=== PATIENT | female | born 1980 | race Caucasian/White ===

== ENCOUNTER 2016-10-19 12:40 | Emergency (ER) | payer BC, OTHER ==
[~2016-10-19] VITALS: Ht 162.6 cm; Wt 64.0 kg
[2016-10-19 12:42] VITALS: TEMP 36.5; Ht 162.6 cm; Wt 64.0 kg
[2016-10-19] MEDS ORDERED: SODIUM CHLORIDE 0.9% 1000ML 1,000 ML IV STA (12:59)
[2016-10-19] MEDS ORDERED: SODIUM CHLORIDE 0.9% 1000ML 1,000 ML IV ONE (12:59)
[2016-10-19] MEDS ORDERED: ONDANSETRON INJ 2 MG/ML 2 ML VIAL IV STA (12:59)
[2016-10-19] MEDS ORDERED: KETOROLAC TROMETHAMINE 30 MG/ML VIAL IV STA (12:59)
--- NOTE | 2016-10-19 13:00 | EMERGENCY ROOM VISIT NOTE ---
History Report prepared by Joyce: Philippe Salas Under the Supervision of: Dr. Philippe Morris M.D. First contact with patient: 12:45 Chief Complaint: ABDOMINAL PAIN Stated Complaint: ABD AND LOWER BACK PAIN History of Present Illness The patient is a 36 year old female who presents to the Emergency Room with complaints of worsening lower central abdominal pain beginning about 2 days ago. She notes she came from [facility] today, and the provider there did not hear anything in the lower bowels. The patient also complains of left lower back pain. She notes her abdominal pain has been worsening and has taken Ibuprofen for her symptoms. The patient notes her pain worsens with movement and lying down. She denies having any chest pain, shortness of breath, nausea, vomiting, urinary symptoms, vaginal bleeding or discharge, or trauma. She admits to having chills, but notes this is normal for her. The patient adds that she has had abnormal bowel movements for the past 3 days, and describes her stool as smaller with distinct sharp edges. Her last period was 16 days ago , and it was normal for her. The patient notes having a history of gallbladder issues, and still has her gallbladder. She has had a laparoscopy in the past, but still has her abdominal organs. The patient admits to a history of endometriosis, and reports a history of pain and cysts with ovulation. She denies any history of kidney stones. Source of History: patient Onset: 2 days ago Position: abdomen (lower ) Quality: other (abdominal pain) Timing: worsening Modifying Factors (Worsening): movement, other (lying down) Associated Symptoms: + back pain, No SOB, No chest pain, No nausea, No urinary symptoms, No vomiting Note: The patient reports having abnormal bowel movements. Review of Systems See HPI for pertinent positives & negatives. A total of 10 systems reviewed and were otherwise negative. Past Medical & Surgical Medical Problems: (1) History of endometriosis (2) History of ovarian cyst Old medical records were reviewed. Nurse's notes were reviewed and I agree with. Family History No pertinent family history stated. Social History Smoking Status: Never Smoker Marital Status: Housing Status: lives with significant other Current/Historical Medications Scheduled Ciprofloxacin Hcl (Cipro), 500 MG PO BID Lactobacillus (Probiotic), 1 CAP PO DAILY Magnesium Oxide (Mg Supplement (Magnesium), 2 TAB PO DAILY Metronidazole (Flagyl), 500 MG PO TID Nutritional Supplements (Pycnogenol), 1 CAP PO DAILY Progesterone (Prometrium), 100 MG PO DAILY Scheduled PRN Tramadol (Ultram), 1-2 TABS PO Q6 PRN for Pain Allergies Coded Allergies: No Known Allergies (Unverified , 10/19/16) Physical Exam Vital Signs Date Time Temp Pulse Resp B/P Pulse Ox O2 Delivery O2 Flow Rate FiO2 10/19/16 14:49 73 18 122/74 99 Room Air 10/19/16 13:54 74 18 118/68 100 Room Air 10/19/16 12:42 36.5 72 16 120/71 97 Room Air Physical Exam General: Mildly uncomfortably appearing, young female, no respiratory distress. HEENT: Normal cephalic atraumatic. Pupils are equal round and reactive to light. Extraocular movements are intact. Oropharynx is pink with moist mucous membranes. No swelling of the mouth lips or tongue. Neck: Supple with a midline trachea. No meningeal signs or stiffness, no JVD or bruits. No Stridor. Chest: Clear to auscultation bilaterally. No wheezes or rhonchi. No increased work of breathing. Heart: regular rate and rhythm. Abdomen: Mildly tender in the lower abdomen centrally, nondistended without rebound guarding or rigidity. Extremities: No cyanosis clubbing or edema. No calf tenderness or assymetry Spine/Back. Non tender to palpation. No CVA tenderness Skin: Good turgor without rashes. Neurologic exam: Cranial nerves two through 12 are intact. Motor and sensation are intact and symmetrical throughout. Medical Decision & Procedures ER Provider Diagnostic Interpretation: Radiology results as stated below per my review and radiologist interpretation: CT SCAN OF THE ABDOMEN AND PELVIS WITHOUT CONTRAST FINDINGS: Lower chest: The heart is normal in size and configuration, without pericardial effusion. The lung bases and pleural spaces are clear. Liver: The unenhanced liver is normal in size, contour, and attenuation. There is no intrahepatic biliary ductal dilatation. Gallbladder: Unremarkable. Spleen: Normal in size and attenuation. Pancreas: Unremarkable. Adrenal glands: Unremarkable. Kidneys: The unenhanced kidneys are normal in size without hydronephrosis. There is no contour deforming renal mass lesion. No renal calculi are identified. Bowel: There are no transition zones indicate bowel obstruction. There is no evidence of acute appendicitis. There is colonic wall thickening and infiltration of the pericolonic fat at the level of the splenic flexure and proximal descending colon. The findings are indicative of acute diverticulitis. There are no fluid collections to indicate a peridiverticular abscess. Peritoneum: There is no intraperitoneal free air or abdominal ascites. Vasculature: The abdominal aorta is normal in course and caliber. Adenopathy: None. Pelvic viscera: The bladder, and pelvic viscera are unremarkable. Skeletal structures: No destructive osseous lesions are seen. IMPRESSION: Acute diverticulitis at the level of the proximal descending colon Electronically signed by: Rolly Matute M.D. 10/19/2016 1:33 PM Dictated Date/Time: 10/19/2016 1:30 PM Laboratory Results 10/19/16 13:05 Red Blood Count 4.41, Mean Corpuscular Volume 97.5, Mean Corpuscular Hemoglobin 32.7, Mean Corpuscular Hemoglobin Concent 33.5, Mean Platelet Volume 11.0, Neutrophils (%) (Auto) 71.4, Lymphocytes (%) (Auto) 16.1, Monocytes (%) (Auto) 11.9, Eosinophils (%) (Auto) 0.3, Basophils (%) (Auto) 0.1, Neutrophils # (Auto ) 8.21, Lymphocytes # (Auto) 1.85, Monocytes # (Auto) 1.37, Eosinophils # (Auto ) 0.04, Basophils # (Auto) 0.01 10/19/16 13:05 Test 10/19/16 13:05 10/19/16 13:45 White Blood Count 11.50 K/uL (4.8-10.8) Red Blood Count 4.41 M/uL (4.2-5.4) Hemoglobin 14.4 g/dL (12.0-16.0) Hematocrit 43.0 % (37-47) Mean Corpuscular Volume 97.5 fL (80-100) Mean Corpuscular Hemoglobin 32.7 pg (25-34) Mean Corpuscular Hemoglobin Concent 33.5 g/dl (32-36) Platelet Count 186 K/uL (130-400) Mean Platelet Volume 11.0 fL (7.4-10.4) Neutrophils (%) (Auto) 71.4 % Lymphocytes (%) (Auto) 16.1 % Monocytes (%) (Auto) 11.9 % Eosinophils (%) (Auto) 0.3 % Basophils (%) (Auto) 0.1 % Neutrophils # (Auto) 8.21 K/uL (1.4-6.5) Lymphocytes # (Auto) 1.85 K/uL (1.2-3.4) Monocytes # (Auto) 1.37 K/uL (0.11-0.59) Eosinophils # (Auto) 0.04 K/uL (0-0.5) Basophils # (Auto) 0.01 K/uL (0-0.2) RDW Standard Deviation 47.0 fL (36.4-46.3) RDW Coefficient of Variation 13.1 % (11.5-14.5) Immature Granulocyte % (Auto) 0.2 % Immature Granulocyte # (Auto) 0.02 K/uL (0.00-0.02) Anion Gap 9.0 mmol/L (3-11) Est Creatinine Clear Calc Drug Dose 66.6 ml/min Estimated GFR () 83.4 Estimated GFR (Non- 71.9 BUN/Creatinine Ratio 11.2 (10-20) Calcium Level 8.7 mg/dl (8.5-10.1) Total Bilirubin 0.5 mg/dl (0.2-1) Direct Bilirubin < 0.1 mg/dl (0-0.2) Aspartate Amino Transf (AST/SGOT) 12 U/L (15-37) Alanine Aminotransferase (ALT/SGPT) 15 U/L (12-78) Alkaline Phosphatase 73 U/L (45-117) Total Protein 7.2 gm/dl (6.4-8.2) Albumin 3.6 gm/dl (3.4-5.0) Lipase 90 U/L (73-393) Human Chorionic Gonadotropin, Qual NEG (NEG) Urine Color DK YELLOW Urine Appearance CLEAR (CLEAR) Urine pH 5.0 (4.5-7.5) Urine Specific [place] 1.023 (1.000-1.030) Urine Protein NEG (NEG) Urine Glucose (UA) NEG (NEG) Urine Ketones TRACE (NEG) Urine Occult Blood TRACE (NEG) Urine Nitrite NEG (NEG) Urine Bilirubin NEG (NEG) Urine Urobilinogen NEG (NEG) Urine Leukocyte Esterase NEG (NEG) Urine WBC (Auto) 1-5 /hpf (0-5) Urine RBC (Auto) 0-4 /hpf (0-4) Urine Hyaline Casts (Auto) 0 /lpf (0-5) Urine Epithelial Cells (Auto) >30 /lpf (0-5) Urine Bacteria (Auto) NEG (NEG) Laboratory studies as stated above per my review. Medications Administered Medications (Trade) Dose Ordered Sig/Rand Route Start Time Stop Time Status Last Admin Dose Admin Sodium Chloride 1,000 ml @ 999 mls/hr Q1H1M STAT IV 10/19/16 12:59 10/19/16 13:59 DC 10/19/16 13:12 999 MLS/HR Sodium Chloride (Nss 1000ml) 1,000 ml @ 150 mls/hr Q6H40M ONCE IV 10/19/16 12:59 10/19/16 15:25 DC 10/19/16 12:59 150 MLS/HR Ondansetron HCl (Zofran Inj) 4 mg NOW STAT IV 10/19/16 12:59 10/19/16 13:01 DC 10/19/16 13:13 4 MG Ketorolac Tromethamine (Toradol Inj) 30 mg NOW STAT IV 10/19/16 12:59 10/19/16 13:01 DC 10/19/16 13:13 30 MG Ciprofloxacin (Cipro Tab) 500 mg NOW STAT PO 10/19/16 14:40 10/19/16 14:42 DC 10/19/16 14:55 500 MG Metronidazole (Flagyl Tab) 500 mg NOW STAT PO 10/19/16 14:40 10/19/16 14:42 DC 10/19/16 14:55 500 MG ED Course 1247: Past medical records reviewed. The patient was evaluated in room A2, and a complete history and physical examination were performed. 1259: Ordered Toradol Inj 30 mg IV, Zofran Inj 4 mg IV, NSS 1,000 ml @ 150 mls/ hr IV, and NSS 1,000 ml @ 999 mls/hr IV. 1440: Ordered Metronidazole 500 mg PO, and Ciprofloxacin 500 mg PO. 1442: I reassessed the patient and she is doing well. 1445: Upon reevaluation, the patient is doing well. I discussed the results and treatment plan with the patient. She verbalized agreement of the treatment plan. The patient was discharged home. Medical Decision Differentials include , kidney stones, UTI, appendicitis, ovarian cyst , bowel obstruction, constipation, and electrolyte or metabolic abnormality. This patient comes in with abdominal pain that has been going on for several days and it has been getting worse. it's mostly in the lower abdomen centrally and also on the back. She denies dysuria or hematuria. Denies . IV access established and she was hydrated IV normal saline. She was given Toradol 30 mg IV and Zofran 4 mg IV. Her is at the bedside and will be driving. Multiple blood tests was obtained as well as a CAT scan. She was reassessed frequently. She did feel better with the pain medication. White count mildly elevated. She is not . She's had no acute electrolyte or metabolic abnormalities. She has nothing to suggest acute liver well but or pancreas disease. Her CAT scan to come back positive for acute diverticulitis and has no evidence of abscess. She desires to go home and I think that this is reasonable to treat this as an outpatient this point I will start on Cipro and Flagyl. She was given the first dose of both of these here. She was warned that Flagyl cannot be taken with alcohol as it could make her feel very sick and do not take alcohol while taking this. She says that narcotics did make her sick in the past and we will try to use Ultram if needed. She has no history of antidepressant use or seizures. I told her she is one or 2 pills every 4-6 hours as needed and warned her can make her drowsy and do not take for drinking, driving, working. She is going to primarily use acetaminophen and /or ibuprofen but do not exceed the [id number] dosages. I encouraged have close follow-up with the next 1-2 days with her regular doctor and she should be feeling better in that time. If she is not she definately needs to be re-evaluated. She should return if she has increasing pain, fever chills, worsening since, any new problems or concerns. She is to ensure that she is drink plenty of fluids. The patient and her are happy with the plan and she was discharged to home with her driving. Impression Primary Impression: Diverticulitis Additional Impression: Abdominal pain, lower Scribe Attestation The scribe's documentation has been prepared under my direction and personally reviewed by me in its entirety. I confirm that the note above accurately reflects all work, treatment, procedures, and medical decision making performed by me. Departure Information Dispostion Home / Self-Care Prescriptions Tramadol (Ultram) 50 Mg Tab 1-2 TABS PO Q6 Y for Pain, #20 TAB Prov: Philippe Morris M.D. 10/19/16 Metronidazole (Flagyl) 500 Mg Tab 500 MG PO TID, #30 TAB Prov: Philippe Morris M.D. 10/19/16 Ciprofloxacin Hcl (CIPRO) 500 Mg Tab 500 MG PO BID, #20 TAB Prov: Philippe Morris M.D. 10/19/16 Referrals Mason Lennon M.D. (PCP) Patient Instructions My [facility] Additional Instructions Rest. Drink plenty of fluids. Mild diet. Use Cipro 500 mg twice a day for 10 days Use Flagyl 500 mg 3 times a day for 10 days. do not drink alcohol when taking the Flagyl For pain may use Acetaminophen/Tylenol a maximum of 650 mg every 6 hours. Do not take with any other medications that contain Tylenol/acetaminophen For more severe pain, use Ultram/tramadol 50 mg, one or 2 pills every 4-6 hours as needed Ultram may make you drowsy do not take before drinking, driving, working. Return if: Worsening of symptoms, fever or chills, increasing pain, any new problems or concerns. Follow-up with your doctor for recheck 1-2 days and return to the ER sooner if symptoms worsen. Problem Qualifiers
[2016-10-19 13:23] LABS: BASO % 0.1 %; BASO ABS # 0.01 K/uL (0-0.2); COMPLETE YES; EOS % 0.3 %; IG% 0.2 %; LYMPH % 16.1 %; LYMPH ABS # 1.85 K/uL (1.2-3.4); MEAN CELL VOLUME 97.5 fL (80-100); MEAN CORPUSCULAR HEMOGLOBIN 32.7 pg (25-34); MEAN CORPUSCULAR HGB CONC 33.5 g/dl (32-36); MONO % 11.9 %; NEUT % 71.4 %; PLATELET COUNT 186 K/uL (130-400); RED BLOOD COUNT 4.41 M/uL (4.2-5.4)
--- NOTE | 2016-10-19 13:35 | DIAGNOSTIC IMAGING REPORT ---
CT SCAN OF THE ABDOMEN AND PELVIS WITHOUT CONTRAST CLINICAL HISTORY: Lower abdominal and flank pain COMPARISON STUDY: No previous studies for comparison. TECHNIQUE: CT scan of the abdomen and pelvis was performed from the lung bases to the proximal femurs. Images are reviewed in the axial, sagittal, and coronal planes. IV contrast was not administered for this examination. CT DOSE: 530.75 mGy.cm FINDINGS: Lower chest: The heart is normal in size and configuration, without pericardial effusion. The lung bases and pleural spaces are clear. Liver: The unenhanced liver is normal in size, contour, and attenuation. There is no intrahepatic biliary ductal dilatation. Gallbladder: Unremarkable. Spleen: Normal in size and attenuation. Pancreas: Unremarkable. Adrenal glands: Unremarkable. Kidneys: The unenhanced kidneys are normal in size without hydronephrosis. There is no contour deforming renal mass lesion. No renal calculi are identified. Bowel: There are no transition zones indicate bowel obstruction. There is no evidence of acute appendicitis. There is colonic wall thickening and infiltration of the pericolonic fat at the level of the splenic flexure and proximal descending colon. The findings are indicative of acute diverticulitis. There are no fluid collections to indicate a peridiverticular abscess. Peritoneum: There is no intraperitoneal free air or abdominal ascites. Vasculature: The abdominal aorta is normal in course and caliber. Adenopathy: None. Pelvic viscera: The bladder, and pelvic viscera are unremarkable. Skeletal structures: No destructive osseous lesions are seen. IMPRESSION: Acute diverticulitis at the level of the proximal descending colon Electronically signed by: Rolly Matute M.D. 10/19/2016 1:33 PM Dictated Date/Time: 10/19/2016 1:30 PM
[2016-10-19 13:41] LABS: ALT/SGPT 15 U/L (12-78); BLOOD UREA NITROGEN 11 mg/dl (7-18); BUN/CREATININE RATIO 11.2 (10-20); CALCIUM 8.7 mg/dl (8.5-10.1); CARBON DIOXIDE 29 mmol/L (21-32); CHLORIDE 105 mmol/L (98-107); GLUCOSE 86 mg/dl (70-99); POTASSIUM 3.6 mmol/L (3.5-5.1); SODIUM 143 mmol/L (136-145)
[2016-10-19 13:44] LABS: ALKALINE PHOSPHATASE 73 U/L (45-117); AST/SGOT 12 U/L (15-37)
[2016-10-19 13:47] LABS: PREG INTERNAL NEGATIVE QC NEG CLEAR BACKGROUND; PREG INTERNAL POSITIVE QC POS CONTROL LINE
[2016-10-19] MEDS ORDERED: PROG100C6 PO (14:03)
[2016-10-19] MEDS ORDERED: MAGN250T8 PO (14:03)
[2016-10-19] MEDS ORDERED: NUTR30CA PO (14:03)
[2016-10-19] MEDS ORDERED: LACT1CAP6 PO (14:03)
[2016-10-19] MEDS ORDERED: CIPROFLOXACIN 500 MG TAB PO STA (14:40)
[2016-10-19] MEDS ORDERED: METRONIDAZOLE 250 MG TAB PO STA (14:40)
[2016-10-19] MEDS ORDERED: METR-163 PO (14:46)
[2016-10-19] MEDS ORDERED: CIPR-255 PO (14:46)
[2016-10-19] MEDS ORDERED: TRAM-10 PO (14:46)
[2016-10-19 14:49] VITALS: BP 122/74; PULSE 73; O2SAT 99
[2016-10-19 15:22] LABS: URINE APPEARANCE CLEAR (CLEAR); URINE BILIRUBIN NEG (NEG); URINE COLOR DK YELLOW; URINE EPITHELIAL CELL AUTO >30 /lpf (0-5); URINE NITRITE NEG (NEG); URINE SPECIFIC GRAVITY 1.023 (1.000-1.030); UROBILINOGEN NEG (NEG)
[2016-10-19 15:23] LABS: MANUAL MICROSCOPIC REQUIRED? NO; REVIEW REQ? NO
== END 2016-10-19 15:01 | disposition home or self-care (01) ==
LOC: C.EDB 12:42 → C.EDA 15:01
DX: K57.32 Diverticulitis of large intestine without perforation or abscess without bleeding (principal)